=== PATIENT | male | born 1960 | race Caucasian/White ===

== ENCOUNTER 2017-08-12 10:08 | Emergency (ER) | payer OTHER ==
[2017-08-12] MEDS: KETOROLAC 60 MG INJ IM (11:05)
== END 2017-08-12 12:10 | disposition home or self-care (01) ==
LOC: FTE 10:08
DX: M79.641 Pain in right hand (principal); M79.642 Pain in left hand; F17.210 Nicotine dependence, cigarettes, uncomplicated; I10 Essential (primary) hypertension; J45.909 Unspecified asthma, uncomplicated
CPT/HCPCS: 29125; 96372; 99284-25

== ENCOUNTER 2017-08-30 12:35 | Emergency (ER) | payer OTHER ==
[2017-08-30] MEDS: HYDROCODONE/APAP (5/325) TAB PO (13:42)
[2017-08-30] MEDS: CEPHALEXIN 500 MG CAP PO (13:42)
== END 2017-08-30 14:30 | disposition home or self-care (01) ==
LOC: FTE 12:35
DX: H10.9 Unspecified conjunctivitis (principal); I10 Essential (primary) hypertension; J45.909 Unspecified asthma, uncomplicated; F17.210 Nicotine dependence, cigarettes, uncomplicated
CPT/HCPCS: 99284; Z7502

== ENCOUNTER 2017-10-21 10:28 | Emergency (ER) | payer OTHER ==
[2017-10-21] MEDS: IBUPROFEN 600 MG TAB PO (11:00)
[2017-10-21] MEDS ORDERED: CEFTRIAXONE 1 GM INJ IM (13:30)
[2017-10-21] MEDS ORDERED: LIDOCAINE 1% (MDV) 20 ML INJ SC (13:30)
== END 2017-10-21 14:42 | disposition home or self-care (01) ==
LOC: FTE 10:28
DX: L03.116 Cellulitis of left lower limb (principal); I10 Essential (primary) hypertension; J45.909 Unspecified asthma, uncomplicated; F17.210 Nicotine dependence, cigarettes, uncomplicated
CPT/HCPCS: 73610; 93971; 99284-25

== ENCOUNTER 2017-11-17 12:07 | Emergency (ER) | payer OTHER ==
[2017-11-17 12:50] LABS: ADD MAN DIFF? NO
[2017-11-17 12:51] LABS: BASOPHIL # 0.1 10^3/ul (0.0-0.1); BASOPHILS % 0.7 % (0.0-2.0); EOSINOPHILS % 0.4 % (0.0-7.0); HEMATOCRIT 43.1 % (42.0-52.0); LYMPHOCYTES # 1.6 10^3/ul (0.8-2.9); LYMPHOCYTES % 23.9 % (15.0-51.0); MEAN CORPUSCULAR HEMOGLOBIN 27.7 pg (29.0-33.0); MEAN CORPUSCULAR HGB CONC 32.5 g/dl (32.0-37.0); MEAN CORPUSCULAR VOLUME 85.2 fl (82.0-101.0); MONOCYTE # 0.5 10^3/ul (0.3-0.9); MONOCYTES % 7.9 % (0.0-11.0); NEUTROPHIL # 4.6 10^3/ul (1.6-7.5); NEUTROPHILS % 66.8 % (39.0-77.0); PLATELET COUNT 253 10^3/UL (140-415); RED BLOOD COUNT 5.06 10^6/ul (4.70-6.10); RED CELL DISTRIBUTION WIDTH 14.6 % (11.5-14.5)
[2017-11-17 12:51] LABS: WHITE BLOOD COUNT 6.8 10^3/ul (4.8-10.8)
[2017-11-17] MEDS: ONDANSETRON 4 MG INJ IV (12:53)
[2017-11-17] MEDS: morphine 4 MG/ML VIAL IV (12:53)
[2017-11-17 13:09] LABS: ANION GAP 15 (8-16); BLOOD UREA NITROGEN 11 mg/dl (7-20); CALCIUM 9.3 mg/dl (8.4-10.2); CARBON DIOXIDE 30 mmol/L (21-31); CHLORIDE 103 mmol/L (97-110); CREATININE 0.96 mg/dl (0.61-1.24); GLUCOSE 87 mg/dl (70-220); POTASSIUM 3.7 mmol/L (3.5-5.1); SODIUM 144 mmol/L (135-144)
[2017-11-17 13:14] LABS: ETHANOL < 10.0 mg/dl
[2017-11-17 13:23] LABS: TROPONIN-I < 0.012 ng/ml (0.00-0.12)
== END 2017-11-17 16:02 | disposition home or self-care (01) ==
LOC: E/R 12:07
DX: R07.89 Other chest pain (principal); I10 Essential (primary) hypertension; J45.909 Unspecified asthma, uncomplicated; R40.2142 Coma scale, eyes open, spontaneous, at arrival to emergency department; R40.2252 Coma scale, best verbal response, oriented, at arrival to emergency department; R40.2362 Coma scale, best motor response, obeys commands, at arrival to emergency department
CPT/HCPCS: 36415; 71045; 80048; 80306; 84484; 85025; 93005; 96374; 96375; 99285-25

== ENCOUNTER 2018-02-03 13:10 | Emergency (ER) | payer OTHER | END 2018-02-03 16:55 | disposition home or self-care (01) | LOC: FTE 13:10 | DX: M25.572 Pain in left ankle and joints of left foot (principal); J45.909 Unspecified asthma, uncomplicated; I10 Essential (primary) hypertension; F17.210 Nicotine dependence, cigarettes, uncomplicated | CPT/HCPCS: 73080; 73080-LT; 73550; 73610; 73650-LT; 99284-25 ==

== ENCOUNTER 2018-02-15 15:16 | Emergency (ER) | payer OTHER ==
[2018-02-15] MEDS: FLUORESCEIN STRIP RIGHT EYE (17:01)
[2018-02-15] MEDS: TETRACAINE 0.5% 4 ML OPH RIGHT EYE (17:01)
[2018-02-15] MEDS: HYDROCODONE/APAP (5/325) TAB PO (17:35)
[2018-02-15] MEDS: OPHTHALMIC IRRIG SOLUTION 120 ML RIGHT EYE (17:54)
== END 2018-02-15 19:09 | disposition home or self-care (01) ==
LOC: FTE 15:16
DX: T15.11XA Foreign body in conjunctival sac, right eye, initial encounter (principal); J45.909 Unspecified asthma, uncomplicated; I10 Essential (primary) hypertension; F17.210 Nicotine dependence, cigarettes, uncomplicated; W25.XXXA Contact with sharp glass, initial encounter; Y92.9 Unspecified place or not applicable
CPT/HCPCS: 99283; Z7502

== ENCOUNTER 2018-06-25 23:29 | Emergency (ER) | payer OTHER ==
[2018-06-26] MEDS: HYDROmorphONE 1 MG/ML SYG IV (00:22)
[2018-06-26] MEDS: ONDANSETRON 4 MG INJ IV (00:22)
[2018-06-26] MEDS: SOD CHLORIDE 0.9% 1,000 ML IV (00:23)
[2018-06-26 00:25] LABS: ADD MAN DIFF? NO
[2018-06-26 00:43] LABS: BASOPHIL # 0.1 10^3/ul (0.0-0.1); BASOPHILS % 0.8 % (0.0-2.0); EOSINOPHILS # 0.1 10^3/ul (0.0-0.5); EOSINOPHILS % 1.7 % (0.0-7.0); HEMATOCRIT 35.2 % (42.0-52.0); LYMPHOCYTES # 1.4 10^3/ul (0.8-2.9); LYMPHOCYTES % 22.7 % (15.0-51.0); MEAN CORPUSCULAR HEMOGLOBIN 27.1 pg (29.0-33.0); MEAN CORPUSCULAR HGB CONC 31.3 g/dl (32.0-37.0); MEAN CORPUSCULAR VOLUME 86.7 fl (82.0-101.0); MEAN PLATELET VOLUME 9.2 fl (7.4-10.4); MONOCYTE # 0.8 10^3/ul (0.3-0.9); MONOCYTES % 12.6 % (0.0-11.0); NEUTROPHIL # 3.7 10^3/ul (1.6-7.5); NEUTROPHILS % 61.7 % (39.0-77.0); PLATELET COUNT 604 10^3/UL (140-415); RED BLOOD COUNT 4.06 10^6/ul (4.70-6.10)
[2018-06-26 00:47] LABS: ANION GAP 10 (5-13); BLOOD UREA NITROGEN 15 mg/dl (7-20); CALCIUM 9.5 mg/dl (8.4-10.2); CARBON DIOXIDE 30 mmol/L (21-31); CHLORIDE 99 mmol/L (97-110); CREATININE 1.06 mg/dl (0.61-1.24); Estimated GFR > 60 mL/min (>60); GLUCOSE 94 mg/dl (70-220); POTASSIUM 3.3 mmol/L (3.5-5.1); SODIUM 139 mmol/L (135-144)
[2018-06-26 00:49] LABS: INR 0.94; PARTIAL THROMBOPLASTIN TIME 29.4 Sec (23.0-35.0); PROTIME 12.7 Sec (11.9-14.9)
[2018-06-26 03:19] LABS: CREATINE KINASE 253 IU/L (23-200)
[2018-06-26] MEDS: HYDROmorphONE 0.5 MG/0.5 ML SYG IV (04:47)
== END 2018-06-26 05:33 | disposition short-term general hospital (02) ==
LOC: E/R 23:29
DX: G89.18 Other acute postprocedural pain (principal); I10 Essential (primary) hypertension; J45.909 Unspecified asthma, uncomplicated; M79.601 Pain in right arm; Z87.891 Personal history of nicotine dependence; Z98.890 Other specified postprocedural states
CPT/HCPCS: 80048; 82550; 85025; 85610; 85730; 96374; 96375; 96376; 99285-25

== ENCOUNTER 2018-08-01 16:16 | Emergency (ER) | payer OTHER ==
[2018-08-01] MEDS: morphine (ER) 30 MG TAB PO (18:02)
== END 2018-08-01 18:28 | disposition home or self-care (01) ==
LOC: FTE 16:16
DX: Z48.01 Encounter for change or removal of surgical wound dressing (principal); J45.909 Unspecified asthma, uncomplicated; F17.210 Nicotine dependence, cigarettes, uncomplicated
CPT/HCPCS: 99283; Z7502